=== PATIENT | female | born 1995 | race American Indian/Alaskan Native ===

== ENCOUNTER 2017-12-11 18:26 | Emergency (ER) | payer OTHER ==
[2017-12-11 19:01] VITALS: BP 134/93; PULSE 79; RESP 16; TEMP 98.2; O2SAT 99
--- NOTE | 2017-12-11 19:42 | ED PDOC ---
HPI: Neurologic - General Time Seen by Provider: 12/11/17 19:10 Chief Complaint (Nursing): Weakness/Neurological Deficit Chief Complaint (Provider): Right sided facial weakness Source: patient Exam Limitations: no limitations - History of Present Illness Timing/Duration: other (x5 days) Associated Symptoms: vision changes (blurriness to right eye). denies: fever/ chills, weakness (in extremities), other (headache) Allergies/Adverse Reactions: Allergies No Known Allergies Allergy (Verified 12/11/17 18:59) Home Medications: Ambulatory Orders Erythromycin 0.5% [Erythromycin] 1 inch AD HS #1 tube 12/11/17 Glycerin/Propylene Glycol [Artificial Tears Drops] 30 ml AD PRN PRN #1 bottle Valacyclovir HCl [Valtrex] 1,000 mg PO TID #21 tablet 12/11/17 predniSONE [Prednisone] 60 mg PO DAILY 10 Days tab 12/11/17 Additional Complaint(s): Joaquina Jay is a 22 year old female, with no significant past medical history, who presents to the emergency department for right side face weakness onset for x5 days. Patient reports on Friday she just had difficulty closing the eye. However, yesterday she developed difficulty moving the whole right side of face associated with numbness and decreased taste to the right side of tongue. Patient also reports some blurriness to the right eye, she has been using glasses instead of contacts. Patient was seen by an urgent care center who sent her to the ED for further evaluation. Patient states x2 weeks ago she had a very bad upper respiratory infection with x1 or 2 days of fever, but it has since resolved. She denies any headache, weakness in extremities or difficulty walking. No further medical complaints. Past Medical History Reviewed: Historical Data, Nursing Documentation, Vital Signs Vital Signs: Last Vital Signs Temp 98.2 F 12/11/17 19:00 Pulse 79 12/11/17 19:00 Resp 16 12/11/17 19:00 BP 134/93 H 12/11/17 19:00 Pulse Ox 99 12/11/17 19:00 - Medical History PMH: No Chronic Diseases - Surgical History Surgical History: No Surg Hx - Family History Family History: States: Hypertension - Social History Current smoker - smoking cessation education provided: Yes Alcohol: Social Drugs: Denies - Home Medications Home Medications: Ambulatory Orders Medication Instructions Recorded Erythromycin 0.5% [Erythromycin] 1 inch AD HS #1 tube 12/11/17 Glycerin/Propylene Glycol 30 ml AD PRN PRN #1 bottle 12/11/17 [Artificial Tears Drops] Valacyclovir HCl [Valtrex] 1,000 mg PO TID #21 tablet 12/11/17 predniSONE [Prednisone] 60 mg PO DAILY 10 Days tab 12/11/17 - Allergies Allergies/Adverse Reactions: Allergies Allergy/AdvReac Type Severity Reaction Status Date / Time No Known Allergies Allergy Verified 12/11/17 18:59 Review of Systems ROS Statement: Except As Marked, All Systems Reviewed And Found Negative (and as per HPI) Constitutional: Negative for: Fever, Chills Neurological: Positive for: Weakness (right face), Numbness. Negative for: Headache, Other (extremity weakness) Physical Exam - Reviewed Nursing Documentation Reviewed: Yes Vital Signs Reviewed: Yes - Physical Exam Appears: Positive for: Non-toxic, No Acute Distress Head Exam: Positive for: ATRAUMATIC, NORMOCEPHALIC Skin: Positive for: Normal Color, Warm, Dry Eye Exam: Positive for: Normal appearance ENT: Positive for: Normal ENT Inspection Neck: Positive for: Painless ROM Cardiovascular/Chest: Positive for: Regular Rate, Rhythm. Negative for: Murmur Respiratory: Positive for: Normal Breath Sounds. Negative for: Wheezing Gastrointestinal/Abdominal: Positive for: Soft. Negative for: Tenderness Back: Positive for: Normal Inspection. Negative for: Decreased ROM Extremity: Positive for: Normal ROM. Negative for: Deformity Lymphatic: Negative for: Adenopathy Neurologic/Psych: Positive for: Alert, Oriented, Motor/Sensory Deficits, Facial Droop (right facial droop involving the brow with difficulty with closing right eye. Ptosis of the right eyelid.) - ECG O2 Sat by Pulse Oximetry: 99 (RA) Pulse Ox Interpretation: Normal Medical Decision Making Medical Decision Making: Initial Impression: thompson's palsy Initial Plan: --Reevaluation Scribe Attestation: Documented by Anthony Chung, acting as a scribe for Effie Toussaint MD Provider Scribe Attestation: All medical record entries made by the Scribe were at my direction and personally dictated by me. I have reviewed the chart and agree that the record accurately reflects my personal performance of the history, physical exam, medical decision making, and the department course for this patient. I have also personally directed, reviewed, and agree with the discharge instructions and disposition. Disposition - Clinical Impression Clinical Impression: Thompson's palsy Counseled Patient/Family Regarding: Studies Performed, Diagnosis, Need For Followup, Rx Given - Disposition Referrals: [facility] [Outside] Disposition: Routine/Home Disposition Time: 19:40 Condition: GOOD Additional Instructions: PLEASE FOLLOW UP WITH YOUR DOCTOR OR [facility] IN 2-3 DAYS FOR REEVALUATION Prescriptions: Erythromycin 0.5% [Erythromycin] 1 inch AD HS #1 tube Glycerin/Propylene Glycol [Artificial Tears Drops] 30 ml AD PRN PRN #1 bottle PRN Reason: Dry Eyes predniSONE [Prednisone] 60 mg PO DAILY 10 Days tab Valacyclovir HCl [Valtrex] 1,000 mg PO TID #21 tablet Instructions: Thompson's Palsy Forms: [facility] ED School/Work Excuse
== END 2017-12-11 20:00 | disposition home or self-care (01) ==
LOC: H.ER 18:26 → SUPCPDRO 18:26 → H.ER 20:00
DX: G51.0 Bell's palsy (principal)